=== PATIENT | male | born 1980 | race Caucasian/White ===

== ENCOUNTER 2021-03-31 18:25 | Emergency (ER) | payer OTHER, SELFPAY ==
[2021-03-31 19:33] VITALS: BP 129/71; PULSE 58; RESP 18; TEMP 36.7; O2SAT 100
--- NOTE | 2021-03-31 19:40 | DI.RAD.S_ITS ---
PROCEDURE: XR HAND RT MIN 3V INDICATIONS: laceration on saw blade TECHNIQUE: 3 views of the hand(s) acquired. COMPARISON: None. FINDINGS: Bones: No fractures or dislocations. Carpal bones are normally aligned. No suspicious bony lesions. Soft tissues: No radiopaque foreign bodies. IMPRESSION: 1. No fractures or radiopaque foreign bodies. Dictated by: Jose F Yuan M.D. on 03/31/2021 at 20:23 Approved by: Jose F Yuan M.D. on 03/31/2021 at 20:24
--- NOTE | 2021-03-31 22:44 | ED_ITS ---
HPI - Wound/Laceration General Chief Complaint: Wound/Laceration Stated Complaint: rt hand injury Time Seen by Provider: 03/31/21 22:43 Source: patient and family () Mode of arrival: Ambulatory Limitations: no limitations History of Present Illness HPI narrative: This is a 40-year-old male with complaint of right hand injury. Patient states he was using a saw earlier today when he caught the back of his hand. He states his pain is pretty well controlled. He has full range of motion. No numbness or tingling. Patient does not appreciate any weakness. Patient is unsure if his tetanus is up-to-date. He denies any other injuries elsewhere. He states he does not take any medications regularly. He states he has an allergy to either cephalexin or Septra. He does not know which. Related Data Previous Rx's Medication Instructions Recorded doxycycline hyclate 100 mg tablet 100 mg PO BID #10 tab 04/01/21 Allergies Allergy/AdvReac Type Severity Reaction Status Date / Time No Known Drug Allergies Allergy Verified 03/31/21 22:59 Review of Systems Review of Systems ROS Unobtainable: All systems reviewed & are unremarkable except as noted in HPI and below Patient History Social History Smoking Status: Never smoker Smoking Status: Never smoker alcohol intake frequency: a few times a month Substance Use Type: does not use Exam Narrative Exam Narrative: GENERAL: Alert and oriented x three, male in mild distress. HEENT: Head normocephalic, atraumatic, EOMI, pupils reactive, face symmetric, moist mucous membranes NECK: Supple, full range of motion EXTREMITIES: Normal range of motion, no clubbing or edema. Neurovascularly intact. Patient has a large laceration on the posterior of his right hand across the metacarpals 2 through 3. It is quite gap with a loss of some tissue. Patient has full adduction and abduction, full flexion extension of all 5 fingers. As well as full movement in the wrist. Known bony tenderness. Normal sensation. NEUROLOGICAL: Cranial nerves II through XII grossly intact. Moving all extremities SKIN: Warm, dry, no petechiae, no rashes or lesions. Initial Vital Signs Initial Vital Signs: Vital Signs Temperature 98.1 F 03/31/21 19:33 Pulse Rate 58 L 03/31/21 19:33 Respiratory Rate 18 03/31/21 19:33 Blood Pressure 129/71 03/31/21 19:33 Pulse Oximetry 100 03/31/21 19:33 Procedures Laceration Repair Laceration 1: Site: hand Side (If applicable): right Size (cm): 5 Description: irregular Depth: simple, single layer Local Anesthetic: lidocaine 1% Amount of anesthesia used (mL): 5 Pre-repair: wound explored, irrigated extensively and deep structures in tact Skin layer closed with: nylon Size (cm): 4-0 Number of sutures: 9 Technique: simple, interrupted Course Orders Ordered: Discontinued Medications Diphtheria/Tetanus/Acell Pertussis (Tet,Diph,Pertuss(Acell),Vac/Pf 0.5 Ml Syringe) 0.5 ml IM .ONCE ONE Stop: 03/31/21 22:55 Last Admin: 03/31/21 23:05 Dose: 0.5 ml Documented by: LOY Doxycycline Hyclate (Doxycycline Hyclate 100 Mg Tablet) 100 mg PO NOW ONE Stop: 03/31/21 22:56 Last Admin: 03/31/21 23:05 Dose: 100 mg Documented by: LOY Ibuprofen (Ibuprofen 400 Mg Tablet) 800 mg PO NOW ONE Stop: 04/01/21 00:06 Last Admin: 04/01/21 00:10 Dose: 800 mg Documented by: LOY Lidocaine/Sodium Bicarbonate (Lido 1%/Sod Bicarb 8.4% (10ml) 10 Ml Syringe) 10 ml INJ NOW ONE Stop: 03/31/21 22:55 Last Admin: 03/31/21 23:06 Dose: 10 ml Documented by: LOY Vital Signs Vital signs: Vital Signs - 8 hr 03/31/21 19:33 Temperature 98.1 F Pulse Rate 58 L Respiratory Rate 18 Blood Pressure 129/71 Pulse Oximetry 100 MDM - Wound/Laceration Imaging Data Extremity x-ray #1: Radiologist's Impression: [address] [id number] ReportSigned Patient: Paolo Kemp [facility]#: [id number]: 1980Acct:[id number]/Sex: 40 / MDate of Service: 03/31/21Loc: EDAccession Number: [id number] Procedure: XR hand RT min 3V Ordering Provider: Ally Dubois D.O. PROCEDURE: XR HAND RT MIN 3V INDICATIONS: laceration on saw blade TECHNIQUE: 3 views of the hand(s) acquired. COMPARISON: None. FINDINGS: Bones: No fractures or dislocations. Carpal bones are normally aligned. No suspicious bony lesions. Soft tissues: No radiopaque foreign bodies. IMPRESSION: 1. No fractures or radiopaque foreign bodies. Dictated by: Jose F Yuan M.D. on 03/31/2021 at 20:23 Approved by: Jose F Yuan M.D. on 03/31/2021 at 20:24 [facility] Narrative Medical decision making narrative: With chainsaw injury to the hand with laceration with no obvious bony involvement. Tendons are not visualized patient has full movement and strength. Patient was placed with a splint to remind him to keep his fingers straight. Patient was also given a prescription for oral antibiotics is likely a dirty infection although fairly clean after irrigation. Discharge Plan Departure Patient Disposition: Home Clinical Impression: Laceration of hand Instructions: DI for Laceration Repair Activity Restrictions/Additional Instructions: Follow-up next 7-10 days for suture removal. Use splint regularly to prevent flexion of your hand so that your sutures are not pulled out. You may take Tylenol up to a 1000 mg and or ibuprofen up to 800 mg every 8 hours as needed for pain Take antibiotics until completely gone. This medication can make you more likely to sunburn so be cautious if your in the sun make sure to wear protective clothing and sunscreen. Prescription sent to [facility] Wound Care: Keep wound(s) clean and dry. Wash daily with soap and water only. Do not use over the counter products (alcohol or peroxide)on the wounds unless instructed by a physician. If wound condition worsens (increased/expanding redness, developing fluid blisters, or worsening pain), either contact your doctor for an urgent re- assessment , or return to the Emergency Department. Return to the Emergency Department for any new or worsening symptoms. Return to the ED, urgent care, or visit a primary care doctor for removal or suture or hui. You have #9 sutures present. Return if fever greater than 100.4 Fahrenheit, increased swelling, increasing pain or worsening symptoms such as increased discharge or spreading redness. Prescriptions: New doxycycline hyclate 100 mg tablet 100 mg PO BID Qty: 10 RF: 0 Referrals: Frida Archibald MD [Physician] -
[2021-03-31] MEDS: DOXYCYCLINE HYCLATE 100 MG TABLET PO (23:05)
[2021-03-31] MEDS: TET,DIPH,PERTUSS(ACELL),VAC/PF 0.5 ML SYRINGE IM (23:05)
[2021-03-31] MEDS: LIDO 1%/SOD BICARB 8.4% (10ML) 10 ML SYRINGE INJ (23:06)
[2021-04-01] MEDS: IBUPROFEN 400 MG TABLET 800 MG PO (00:10)
[2021-04-01 00:19] VITALS: BP 128/77; PULSE 60; RESP 16; O2SAT 97
== END 2021-04-01 00:20 | disposition home or self-care (01) ==
PROVIDERS: Emergency Provider Emergency Medicine
DX: S61.411A Laceration without foreign body of right hand, initial encounter (principal); W27.0XXA Contact with workbench tool, initial encounter; Z23 Encounter for immunization
CPT/HCPCS: 12002; 73130; 90471; 99283; 99284; 90715

== ENCOUNTER 2022-10-31 08:19 | Emergency (ER) | payer OTHER, SELFPAY ==
[2022-10-31] VITALS (20 sets, daily range): BP systolic 118–153; BP diastolic 65–92; PULSE 57–78; RESP 14–24; TEMP 36.2; O2SAT 96–100; BMI 27.2
--- NOTE | 2022-10-31 08:38 | DI.CT.S_ITS ---
PROCEDURE: CT STROKE INDICATIONS: left hemianopsia, prior bleed cavernous sinus clot, TECHNIQUE: Noncontrast 4.5 mm thick angled axial sections acquired from the foramen magnum to the vertex, with coronal reformats. For radiation dose reduction, the following was used: automated exposure control, adjustment of mA and/or kV according to patient size. COMPARISON: [facility], CT, HEAD WITHOUT CONTRAST, 07/01/2015, 13:13. FINDINGS: Image quality: Excellent. CSF spaces: Basal cisterns are patent. No extra-axial fluid collections. Ventricles are normal in size and shape. Brain: No midline shift. No intracranial masses or hemorrhage. Friedman-white matter interface is normal. Bones of the lesion can be seen involving lobe. Skull and face: Posterior craniotomy changes are seen. Calvarium and visualized facial bones are intact, without suspicious lesions. Sinuses: Visualized sinuses and mastoids are clear. IMPRESSION: Negative for acute hemorrhage. Prior craniotomy change with encephalomalacia involving the right occipital lobe. Note: Case discussed by telephone with Dr. Chen at 7:56 a.m. [place] time on October 31, 2022. This study fulfills neurological imaging criteria for inclusion or exclusion of acute stroke therapies based on available published neurological imaging guidelines. Dictated by: Syed Davidson M.D. on 10/31/2022 at 7:55 Approved by: Syed Davidson M.D. on 10/31/2022 at 7:56
--- NOTE | 2022-10-31 08:38 | DI.CT.S_ITS ---
PROCEDURE: CT ANGIO HEAD AND NECK INDICATIONS: left hemianopsia, prior bleed cavernous sinus clot, TECHNIQUE: Noncontrast images were performed earlier in the day and not repeated. After the administration of intravenous contrast, 1 mm thick sections acquired from the aortic arch through the [place]. Post-contrast 4.5 mm thick sections then re-acquired from the foramen magnum to the vertex. 3-dimensional [id number]-rosgfrgrkr (MIP) and/or volume rendering reformats were acquired of the central intracranial vasculature and neck separately. For radiation dose reduction, the following was used: automated exposure control, adjustment of mA and/or kV according to patient size. COMPARISON: [facility], CT, HEAD WITHOUT CONTRAST, 07/01/2015, 13:13. [facility], CT, CT STROKE, 10/31/2022, 8:42. FINDINGS: Image quality: Excellent. BRAIN: CSF spaces: Ventricles are normal in size and shape. Basal cisterns are patent. No extra-axial fluid collections. Brain: No midline shift. No intracranial bleeds or masses. Friedman-white matter interface appears intact. Focal encephalomalacia is seen involving the right occipital lobe. No abnormal vascularity can be seen at this site. Skull and face: Posterior craniotomy changes seen. Calvarium and facial bones appear intact, without suspicious lesions. Orbits appear normal. Sinuses: Sinuses and mastoids are clear. HEAD CT ANGIOGRAPHY: Anterior circulation: Intracranial internal carotid arteries are normal in size and flow. The flow within the paired anterior cerebral arteries is normal and symmetric. The flow within the middle cerebral arteries is normal and symmetric. The anterior communicating artery is seen. No aneurysms are seen. Posterior circulation: Visualized portions of the vertebral arteries demonstrate normal caliber, and join to form a normal appearing basilar artery. Flow within the posterior cerebral arteries is normal and symmetric. No aneurysms are seen. NECK CT ANGIOGRAPHY: Carotid system: The great vessels demonstrate a conventional anatomy as they arise from the aortic arch. The origins of the common carotid arteries appear patent. The common carotid arteries demonstrate normal caliber and courses. The bifurcation regions are both widely patent. The internal carotid arteries demonstrate normal calibers and courses. Posterior circulation: The origins of the vertebral arteries both appear widely patent. The more superior extracranial portions of both vertebral arteries also demonstrate normal courses and calibers. The left vertebral artery is dominant to right Soft tissues: Visualized neck soft tissues demonstrate no suspicious abnormalities. Bones: No suspicious bony lesions. Visualized cervical spine appears normally aligned. IMPRESSION: No significant intracranial arterial abnormality is seen. Within the arteries of the neck, no hemodynamically significant stenosis can be seen. 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 Posterior craniotomy change is seen. Any quantitative measurements of stenosis were performed using NASCET criteria. Dictated by: Syed Davidson M.D. on 10/31/2022 at 8:27 Approved by: Syed Davidson M.D. on 10/31/2022 at 8:30
--- NOTE | 2022-10-31 08:42 | ED.NEUROSD ---
HPI - Neuro Symptoms/Deficit General Chief Complaint: Neuro Symptoms/Deficit Stated Complaint: head pains, vision distorted on lt side Time Seen by Provider: 10/31/22 08:34 Source: patient Mode of arrival: Ambulatory History of Present Illness HPI Narrative: Patient 42-year-old male who has history of intracranial hemorrhage 7 years and cavernous venous thrombosis, presenting today with headache and left vision deficits. Said he is had a headache for about a week worse whenever he bends over. Yesterday he noticed he had some visual changes it was his birthday he did not really want to come in. Feels like there is deficit where he can not see half of his vision. He is no numbness tingling or weakness. No nausea or vomiting. This feels similar to his previous hemorrhagic stroke. He has also suffered from ocular migraines so he was not too concerned. He does have ocular migraines but he said this feels different in the vision is slightly more blurry than. On Anticoagulants: No Related Data Allergies Allergy/AdvReac Type Severity Reaction Status Date / Time No Known Drug Allergies Allergy Verified 10/31/22 08:40 Review of Systems Review of Systems ROS Unobtainable: All systems reviewed & are unremarkable except as noted in HPI and below Hematologic/Lymphatic On Anticoagulants: No Patient History Social History Smoking Status: Never smoker Smoking Status: Never smoker alcohol intake frequency: a few times a month Substance Use Type: does not use Exam Initial Vital Signs Initial Vital Signs: Vital Signs Temperature 97.1 F L 10/31/22 08:25 Pulse Rate 69 10/31/22 08:25 Respiratory Rate 18 10/31/22 08:25 Blood Pressure 148/78 H 10/31/22 08:25 Pulse Oximetry 99 10/31/22 08:25 Oxygen Delivery Method 10/31/22 08:25 GENERAL: Alert pleasant 42-year-old male HEENT: Head atraumatic,EOMI, pupils reactive, face symmetric, moist mucous membranes CARDIOVASCULAR: Regular rate and rhythm without murmurs, rubs or gallops. RESPIRATORY: Breath sounds equal bilaterally, no wheezes rales or rhonchi. ABDOMEN: Soft, nontender. Normoactive bowel sounds all 4 quadrants. No guarding or rebound. EXTREMITIES: Normal range of motion, no clubbing or edema. Neurovascularly intact NEUROLOGICAL: Alert and oriented x4.Normal gait and speech. Cranial nerves II through XII grossly intact. Good [id number], good mdfl-ak-[id number], strength equal bilaterally, no dysarthria or aphasia, sensation in tact to soft touch bilaterally, no visual changes, no facial droop, left hemianopsia present SKIN: Warm, dry, no laceration, no petechiae, no rashes or lesions. Scores NIH Stroke Scale Level of Conciousness: Alert, keenly responsive Ask month/age: Answers both questions correctly. Open/close eyes, close hand: Performs both tasks correctly Best gaze horizontal: Normal Visual coon: Partial hemianopia Facial palsy: Normal symetrical movement Left arm drift: No drift for full 10 sec Right arm drift: No drift for full 10 sec Left leg drift: No drift for full 5 sec Right leg drift: No drift for full 5 sec Limb ataxia: Absent Sensory on face/arms/legs: Normal, no sensory loss Best language: No aphasia, normal Dysarthria: Normal Extinction or inattention: No abnormality Total NIH Stroke scale score: 1 Course Orders Ordered: Discontinued Medications Aspirin (Aspirin Ec 325 Mg Tablet) 325 mg PO NOW ONE Stop: 10/31/22 09:16 Last Admin: 10/31/22 09:53 Dose: 325 mg Documented By: MARIO Vital Signs Vital signs: Vital Signs - 8 hr 10/31/22 08:25 10/31/22 08:35 10/31/22 08:37 Temperature 97.1 F L Pulse Rate 69 73 Respiratory Rate 18 Blood Pressure 148/78 H 136/81 Pulse Oximetry 99 100 Oxygen Delivery Method Room Air 10/31/22 08:37 Temperature Pulse Rate 78 Respiratory Rate 14 Blood Pressure Pulse Oximetry 100 Oxygen Delivery Method Room Air MDM - Neuro Symptoms/Deficit Lab Data 10/31/22 08:20 10/31/22 08:20 Labs: Lab Results 10/31/22 10/31/22 10/31/22 Range/Units 08:20 08:20 08:20 WBC 3.9 L (4.5-11.0) X10^3/uL RBC 4.96 (4.5-5.9) X10^6/uL Hgb 14.8 (13.5-17.5) g/dL Hct 44.1 (41-53) % MCV 88.8 (80-100) fL MCH 29.8 (26-34) PG MCHC 33.5 (30-36) % RDW 13.1 (11.6-14.8) % Plt Count 226 (150-400) X10^3/uL Neut % (Auto) 38.1 L (50-75) % Lymph % (Auto) 44.7 H (25-40) % [place] % (Auto) 10.0 (3-14) % Eos % (Auto) 6.2 H (2-4) % Baso % (Auto) 1.0 (0-2) % Neut # (Auto) 1500 (5860-1293) /uL Lymph # (Auto) 1700 (6190-9773) /uL [place] # (Auto) 400 (0-900) /uL Eos # (Auto) 200 (0-450) /uL Baso # (Auto) 0 (0-100) /uL PT 11.7 (10.1-12.7) SECONDS INR 1.0 (0.9-1.3) APTT 31 (26-36) SECONDS D-Dimer (<500) ng/ml Sodium 139 (137-145) mmol/L Potassium 3.8 (3.4-5.1) mmol/L Chloride 101 (98-107) mmol/L Carbon Dioxide 30 (22-32) mmol/L BUN 10 (9-20) mg/dL Creatinine 0.70 (0.66-1.25) mg/dL Estimated GFR > 60 (>60) mL/min BUN/Creatinine Ratio 14.3 (6-22) Glucose 82 (70-100) mg/dL Calcium 9.0 (8.4-10.2) mg/dL Total Bilirubin 1.3 (0.2-1.3) mg/dL AST 42 (17-59) IU/L ALT 52 H (<50) IU/L Alkaline Phosphatase 58 (38-126) U/L Total Creatine Kinase 61 (55-170) U/L CK-MB (CK-2) TNP CK-MB (CK-2) Rel Index TNP Troponin I < 0.012 (0.01-0.034) ng/mL Total Protein 7.4 (6.3-8.2) g/dL Albumin 4.4 (3.5-5.0) g/dL Globulin 3.0 (1.7-4.1) g/dL Albumin/Globulin Ratio 1.5 (1.0-2.8) Urine Color Urine Appearance Urine pH (4.5-8.0) Ur Specific [place] (1.000-1.035) Urine Protein (Negative) Urine Glucose (UA) (Negative) g/dL Urine Ketones (NEGATIVE) Urine Occult Blood (Negative) Urine Nitrate (Negative) Urine Bilirubin (NEGATIVE) Urine Urobilinogen (0.2) E.U./dL Ur Leukocyte Esterase (NEGATIVE) Urine RBC (0-5/HPF) Urine WBC (0-5/HPF) Ur Squamous Epith Cells (0-5/HPF) Urine Bacteria (None) Ur Culture Indicated? U Opiates 300ng/mL cut (Negative) Ur Oxycodone Screen (Negative) Urine Methadone Screen (Negative) Ur Barbiturates Screen (Negative) U Tricyclic Antidepress (Negative) Ur Phencyclidine Scrn (Negative) Ur Amphetamines Screen (Negative) U Methamphetamines Scrn (Negative) Ur MDMA Scrn (Ecstasy) (Negative) U Benzodiazepines Scrn (Negative) Urine Cocaine Screen (Negative) U Marijuana (THC) Screen (Negative) Ethyl Alcohol < 10 ( - 10) mg/dL SARS-CoV-2 (PCR) (Negative) 10/31/22 10/31/22 10/31/22 Range/Units 08:20 08:20 08:20 WBC (4.5-11.0) X10^3/uL RBC (4.5-5.9) X10^6/uL Hgb (13.5-17.5) g/dL Hct (41-53) % MCV (80-100) fL MCH (26-34) PG MCHC (30-36) % RDW (11.6-14.8) % Plt Count (150-400) X10^3/uL Neut % (Auto) (50-75) % Lymph % (Auto) (25-40) % [place] % (Auto) (3-14) % Eos % (Auto) (2-4) % Baso % (Auto) (0-2) % Neut # (Auto) (3040-8381) /uL Lymph # (Auto) (3644-8095) /uL [place] # (Auto) (0-900) /uL Eos # (Auto) (0-450) /uL Baso # (Auto) (0-100) /uL PT (10.1-12.7) SECONDS INR (0.9-1.3) APTT (26-36) SECONDS D-Dimer 225 (<500) ng/ml Sodium (137-145) mmol/L Potassium (3.4-5.1) mmol/L Chloride (98-107) mmol/L Carbon Dioxide (22-32) mmol/L BUN (9-20) mg/dL Creatinine (0.66-1.25) mg/dL Estimated GFR (>60) mL/min BUN/Creatinine Ratio (6-22) Glucose (70-100) mg/dL Calcium (8.4-10.2) mg/dL Total Bilirubin (0.2-1.3) mg/dL AST (17-59) IU/L ALT (<50) IU/L Alkaline Phosphatase (38-126) U/L Total Creatine Kinase (55-170) U/L CK-MB (CK-2) CK-MB (CK-2) Rel Index Troponin I (0.01-0.034) ng/mL Total Protein (6.3-8.2) g/dL Albumin (3.5-5.0) g/dL Globulin (1.7-4.1) g/dL Albumin/Globulin Ratio (1.0-2.8) Urine Color Yellow Urine Appearance Clear Urine pH 6.5 (4.5-8.0) Ur Specific [place] 1.020 (1.000-1.035) Urine Protein Negative (Negative) Urine Glucose (UA) Negative (Negative) g/dL Urine Ketones Negative (NEGATIVE) Urine Occult Blood Negative (Negative) Urine Nitrate Negative (Negative) Urine Bilirubin Negative (NEGATIVE) Urine Urobilinogen 0.2 (0.2) E.U./dL Ur Leukocyte Esterase Negative (NEGATIVE) Urine RBC None seen (0-5/HPF) Urine WBC 0-1/hpf (0-5/HPF) Ur Squamous Epith Cells None seen (0-5/HPF) Urine Bacteria Occasional (0-1) (None) Ur Culture Indicated? Cult not indicated U Opiates 300ng/mL cut Negative (Negative) Ur Oxycodone Screen Negative (Negative) Urine Methadone Screen Negative (Negative) Ur Barbiturates Screen Negative (Negative) U Tricyclic Antidepress Negative (Negative) Ur Phencyclidine Scrn Negative (Negative) Ur Amphetamines Screen Negative (Negative) U Methamphetamines Scrn Negative (Negative) Ur MDMA Scrn (Ecstasy) Negative (Negative) U Benzodiazepines Scrn Negative (Negative) Urine Cocaine Screen Negative (Negative) U Marijuana (THC) Screen Negative (Negative) Ethyl Alcohol ( - 10) mg/dL SARS-CoV-2 (PCR) (Negative) 10/31/22 Range/Units 09:56 WBC (4.5-11.0) X10^3/uL RBC (4.5-5.9) X10^6/uL Hgb (13.5-17.5) g/dL Hct (41-53) % MCV (80-100) fL MCH (26-34) PG MCHC (30-36) % RDW (11.6-14.8) % Plt Count (150-400) X10^3/uL Neut % (Auto) (50-75) % Lymph % (Auto) (25-40) % [place] % (Auto) (3-14) % Eos % (Auto) (2-4) % Baso % (Auto) (0-2) % Neut # (Auto) (7363-5063) /uL Lymph # (Auto) (0940-9951) /uL [place] # (Auto) (0-900) /uL Eos # (Auto) (0-450) /uL Baso # (Auto) (0-100) /uL PT (10.1-12.7) SECONDS INR (0.9-1.3) APTT (26-36) SECONDS D-Dimer (<500) ng/ml Sodium (137-145) mmol/L Potassium (3.4-5.1) mmol/L Chloride (98-107) mmol/L Carbon Dioxide (22-32) mmol/L BUN (9-20) mg/dL Creatinine (0.66-1.25) mg/dL Estimated GFR (>60) mL/min BUN/Creatinine Ratio (6-22) Glucose (70-100) mg/dL Calcium (8.4-10.2) mg/dL Total Bilirubin (0.2-1.3) mg/dL AST (17-59) IU/L ALT (<50) IU/L Alkaline Phosphatase (38-126) U/L Total Creatine Kinase (55-170) U/L CK-MB (CK-2) CK-MB (CK-2) Rel Index Troponin I (0.01-0.034) ng/mL Total Protein (6.3-8.2) g/dL Albumin (3.5-5.0) g/dL Globulin (1.7-4.1) g/dL Albumin/Globulin Ratio (1.0-2.8) Urine Color Urine Appearance Urine pH (4.5-8.0) Ur Specific [place] (1.000-1.035) Urine Protein (Negative) Urine Glucose (UA) (Negative) g/dL Urine Ketones (NEGATIVE) Urine Occult Blood (Negative) Urine Nitrate (Negative) Urine Bilirubin (NEGATIVE) Urine Urobilinogen (0.2) E.U./dL Ur Leukocyte Esterase (NEGATIVE) Urine RBC (0-5/HPF) Urine WBC (0-5/HPF) Ur Squamous Epith Cells (0-5/HPF) Urine Bacteria (None) Ur Culture Indicated? U Opiates 300ng/mL cut (Negative) Ur Oxycodone Screen (Negative) Urine Methadone Screen (Negative) Ur Barbiturates Screen (Negative) U Tricyclic Antidepress (Negative) Ur Phencyclidine Scrn (Negative) Ur Amphetamines Screen (Negative) U Methamphetamines Scrn (Negative) Ur MDMA Scrn (Ecstasy) (Negative) U Benzodiazepines Scrn (Negative) Urine Cocaine Screen (Negative) U Marijuana (THC) Screen (Negative) Ethyl Alcohol ( - 10) mg/dL SARS-CoV-2 (PCR) Negative (Negative) Imaging Data CT scan - head: Radiologist's Impression: Dr. Davidson called me at 8:56 a.m. no intracranial hemorrhage CT Scan Report Signed Patient: Paolo Kemp MR#: [id number] : 1980 Acct:[id number] Age/Sex: 42 / M Date of Service: 10/31/22 Loc: ED Accession Number: [id number] ?? Procedure: CT Stroke Ordering Provider: Nicole Chen D.O. PROCEDURE:? CT STROKE ? INDICATIONS:? left hemianopsia, prior bleed cavernous sinus clot, ? TECHNIQUE:? Noncontrast 4.5 mm thick angled axial sections acquired from the foramen magnum to the vertex, with coronal reformats.? For radiation dose reduction, the following was used:? automated exposure control, adjustment of mA and/or kV according to patient size.? ? COMPARISON:? [facility], CT, HEAD WITHOUT CONTRAST, 07/01/2015, 13:13. ? FINDINGS:? Image quality:? Excellent.? ? CSF spaces:? Basal cisterns are patent.? No extra-axial fluid collections.? Ventricles are normal in size and shape.? ? Brain:? No midline shift.? No intracranial masses or hemorrhage.? Friedman-white matter interface is normal.? Bones of the lesion can be seen involving lobe. ? Skull and face:? Posterior craniotomy changes are seen.? Calvarium and visualized facial bones are intact, without suspicious lesions.? ? Sinuses:? Visualized sinuses and mastoids are clear.? ? ? IMPRESSION:? Negative for acute hemorrhage. ? Prior craniotomy change with encephalomalacia involving the right occipital lobe. ? Note: Case discussed by telephone with Dr. Chen at 7:56 a.m. [place] time on October 31, 2022.? ? This study fulfills neurological imaging criteria for inclusion or exclusion of acute stroke therapies based on available published neurological imaging guidelines.? ? ? Dictated by: Syed Davidson M.D. on 10/31/2022 at 7:55 ? ? Approved by: Syed Davidson M.D. on 10/31/2022 at 7:56 ? MR brain: Radiologist's Impression: Signed Patient: Paolo Kemp MR#: [id number] : 1980 Acct:[id number] Age/Sex: 42 / M Date of Service: 10/31/22 Loc: 90A-1 Accession Number: [id number] ?? Procedure: MR head/brain wo con Ordering Provider: Nicole Chen D.O. PROCEDURE:? MR HEAD/BRAIN WO CON ? INDICATIONS:? left visual defect ? TECHNIQUE:? Noncontrast axial T1 spin echo, axial T2 fast spin echo, sagittal and axial FLAIR, coronal T2 fast spin echo, axial gradient echo, axial diffusion and ADC through the brain.? ? COMPARISON:? [facility], CT, CT STROKE, 10/31/2022, 8:42.? [facility], CT, CT ANGIO HEAD AND NECK, 10/31/2022, 8:42. ? FINDINGS:? Image quality:? Excellent.? ? CSF Spaces:? Basal cisterns are patent.? No extra-axial fluid collections.? Ventricles are normal in size and shape.? ? Brain:? There is encephalomalacia in the right occipital lobe compatible with old infarct.? 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 No evidence for acute intracranial hemorrhage.? No intracranial masses.? Friedman/white matter interface is normal.? Brainstem appears normal.? Diffusion-weighted images demonstrate no acute ischemic insult.? No chronic ischemic insults.? Normal intravascular flow voids are present.? ? Skull and face:? Calvarium has normal marrow signal.? Orbits appear normal.? ? Sinuses:? Sinuses and mastoids are clear.? ? IMPRESSION:? ? 1. A small area of old hemorrhagic infarct in the right occipital lobe.? No acute ischemia or intracranial hemorrhage. ? The result was discussed with Dr. Chen.? ? ? Dictated by: Sidney Crabtree M.D. on 10/31/2022 at 11:28? ECG Data Interpretation: Normal sinus rhythm rate 67 ME interval 178 QRS [address] changes no T-wave inversions MDM Narrative Medical decision making narrative: Patient 42-year-old male with history of intracranial hemorrhage and cavernous sinus thrombosis with intervention presenting today with headache for 1 week and left-sided hemianopsia started yesterday. Currently out of the window for tPA. Initial head CT results were called to me by Dr. Davidson, reports no acute intracranial hemorrhage. Patient is given aspirin 325. 09:12 Dr. Bolivar stroke neurologist at [facility] consulted in regards to acute stroke. At this time recommends aspirin 325 daily MRI. Recommend checking for antiphospholipid antibody factor [address] Alvarado accepts patient for CVA After further discussion with patient he has had some hemianopsia that comes and goes since his intracranial hemorrhage he is had headache ongoing for 1 week slightly more blurry vision than normal. He actually had MRI that was done fairly quickly there is a spot in the right occipital area in the same place where his previous hemorrhage was. There is no acute infarct no acute hemorrhage. I actually suspect this is Warm and ocular migraine rather than a CVA. However he is already been admitted in the hospitalist is here to evaluate. Low suspicion for new an acute stroke. However some of the hypercoagulable labs have been sent and are still pending. Discharge Plan Departure Patient Disposition: Home Clinical Impression: Intracranial hemorrhage
[2022-10-31 08:48] LABS: Prothrombin Time 11.7 SECONDS (10.1-12.7)
[2022-10-31 08:49] LABS: Add Manual Diff / Slide Review NO; Basophils Absolute Auto 0 /uL (0-100); Eosinophils Absolute Auto 200 /uL (0-450); Eosinophils Percent Auto 6.2 % (2-4); Hematocrit 44.1 % (41-53); Hemoglobin 14.8 g/dL (13.5-17.5); Lymphocytes Absolute Auto 1700 /uL (1100-4500); Lymphocytes Percent Auto 44.7 % (25-40); Mean Corpuscular HGB Conc 33.5 % (30-36); Mean Corpuscular Hemoglobin 29.8 PG (26-34); Mean Corpuscular Volume 88.8 fL (80-100); Monocytes Absolute Auto 400 /uL (0-900); Neutrophils Absolute Auto 1500 /uL (1500-7000); Neutrophils Percent Auto 38.1 % (50-75); Platelet Count 226 X10^3/uL (150-400); Red Blood Cell Count 4.96 X10^6/uL (4.5-5.9); Red Cell Distribution Width 13.1 % (11.6-14.8); White Blood Cell Count 3.9 X10^3/uL (4.5-11.0)
[2022-10-31 08:51] LABS: Appearance Urine UA CLEAR; Bilirubin Urine UA NEGATIVE (NEGATIVE); Color Urine UA YELLOW; Glucose Urine UA NEGATIVE (Negative); Ketones Urine UA NEGATIVE (NEGATIVE); Leukocyte Esterase Urine UA NEGATIVE (NEGATIVE); Nitrite Urine UA NEGATIVE (Negative); Occult Blood Urine UA NEGATIVE (Negative); PTT Partial Thromboplastin Tim 31 SECONDS (26-36); Protein Urine UA NEGATIVE (Negative); Urobilinogen Urine UA 0.2 E.U./dL (0.2); pH Urine UA 6.5 (4.5-8.0)
[2022-10-31 08:52] LABS: UR Morphine/Opiate cutoff 300 Negative (Negative); Ur Creatinine Normal (Normal); Ur Specific Gravity Normal (Normal); Urine Amphetamines Negative (Negative); Urine Barbiturates Negative (Negative); Urine Benzodiazepines Negative (Negative); Urine Cocaine Negative (Negative); Urine MDMA Negative (Negative); Urine Methadone Negative (Negative); Urine Methamphetamines Negative (Negative); Urine Oxycodone Negative (Negative); Urine Phencyclidine Negative (Negative); Urine Tetrahydrocannabinol Negative (Negative); Urine Tricyclic Antidepressant Negative (Negative); Urine pH Normal (Normal)
[2022-10-31 09:03] LABS: Alanine Aminotransferase 52 IU/L (<50); Albumin 4.4 g/dL (3.5-5.0); Albumin Globulin Ratio 1.5 (1.0-2.8); Alkaline Phosphatase 58 U/L (38-126); Aspartate Aminotransferase 42 IU/L (17-59); BUN Creatinine Ratio 14.3 (6-22); Bilirubin Total 1.3 mg/dL (0.2-1.3); Blood Urea Nitrogen 10 mg/dL (9-20); Carbon Dioxide 30 mmol/L (22-32); Chloride 101 mmol/L (98-107); Creatine Kinase 61 U/L (55-170); Estimated Glomerular Filt Rate > 60 mL/min (>60); Ethanol (ETOH) < 10 mg/dL; Glucose 82 mg/dL (70-100); HEMOLYSIS < 15 (0-50); Potassium 3.8 mmol/L (3.4-5.1); Sodium 139 mmol/L (137-145); Total Protein 7.4 g/dL (6.3-8.2)
[2022-10-31 09:08] LABS: Bacteria Urine Occasional (0-1); Culture Indicated Urine Cult Not Indicated; RBC Urine None Seen (0-5/HPF); Squamous Epithelial Cell Urine None Seen (0-5/HPF); WBC Urine 0-1/HPF (0-5/HPF)
[2022-10-31 09:13] LABS: Troponin I < 0.012 ng/mL (0.01-0.034)
[2022-10-31 09:14] LABS: D Dimer 225 ng/ml (<500)
--- NOTE | 2022-10-31 09:15 | DI.MRI.S_ITS ---
PROCEDURE: MR HEAD/BRAIN WO CON INDICATIONS: left visual defect TECHNIQUE: Noncontrast axial T1 spin echo, axial T2 fast spin echo, sagittal and axial FLAIR, coronal T2 fast spin echo, axial gradient echo, axial diffusion and ADC through the brain. COMPARISON: [facility], CT, CT STROKE, 10/31/2022, 8:42. [facility], CT, CT ANGIO HEAD AND NECK, 10/31/2022, 8:42. FINDINGS: Image quality: Excellent. CSF Spaces: Basal cisterns are patent. No extra-axial fluid collections. Ventricles are normal in size and shape. Brain: There is encephalomalacia in the right occipital lobe compatible with old infarct. 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 No evidence for acute intracranial hemorrhage. No intracranial masses. Friedman/white matter interface is normal. Brainstem appears normal. Diffusion-weighted images demonstrate no acute ischemic insult. No chronic ischemic insults. Normal intravascular flow voids are present. Skull and face: Calvarium has normal marrow signal. Orbits appear normal. Sinuses: Sinuses and mastoids are clear. IMPRESSION: 1. A small area of old hemorrhagic infarct in the right occipital lobe. No acute ischemia or intracranial hemorrhage. The result was discussed with Dr. Chen. Dictated by: Sidney Crabtree M.D. on 10/31/2022 at 11:28 Approved by: Sidney Crabtree M.D. on 10/31/2022 at 11:39
[2022-10-31] MEDS: ASPIRIN EC 325 MG TABLET PO (09:53)
[2022-10-31 09:57] LABS: COVID19 -Nasal RAPID Negative (Negative)
--- NOTE | 2022-10-31 14:30 | PC.NURSE ---
Pt reports intermittent left half vision loss in both eyes. Reports 5/10 headache. Provider aware.
--- NOTE | 2022-10-31 16:35 | PM.HP.1 ---
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 Past week he has had occiptal headache comes and goes 5-7/10 severity. Since yesterday has been experiencing frequent flashes of light in left visual field which comes and goes. Pt has residual partial left visual field cut, describes as a thin line, since AVM surgery. He denies any new visual field deficit. No N/V.. He hasn't taken anything for these headaches. No fevers. ED w/u: Head CT no acute bleed. CTA no arterial abnormality. 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 Patient History Family & Social History Safety & Behavioral: Feels Safe in Current Yes Environment Been Physically Hurt or No Threatened By a Person Tobacco & Substance use: Smoking Status Never smoker alcohol intake frequency a few times a month Substance Use Type does not use Meds Home Medications and Allergies Allergies Allergy/AdvReac Type Severity Reaction Status Date / Time No Known Drug Allergies Allergy Verified 10/31/22 08:40 Review of Systems Review of Systems Narrative: complete 10 point ROS otherwise negative Exam Vital Signs (past 8 hours): - 10/31/22 08:37 10/31/22 08:37 10/31/22 09:00 Pulse Rate 78 70 Respiratory Rate 14 Blood Pressure 136/81 Pulse Oximetry 100 99 Oxygen Delivery Method Room Air 10/31/22 09:04 10/31/22 09:04 10/31/22 09:15 Pulse Rate 65 Respiratory Rate Blood Pressure 128/77 129/78 Pulse Oximetry 100 Oxygen Delivery Method 10/31/22 09:15 10/31/22 09:30 10/31/22 09:30 Pulse Rate 64 65 Respiratory Rate Blood Pressure 135/82 Pulse Oximetry 99 99 Oxygen Delivery Method 10/31/22 14:18 10/31/22 14:19 10/31/22 14:19 Pulse Rate 62 57 L Respiratory Rate Blood Pressure 127/76 Pulse Oximetry 99 99 Oxygen Delivery Method 10/31/22 14:30 10/31/22 14:30 10/31/22 14:45 Pulse Rate 58 L 60 Respiratory Rate 16 Blood Pressure 128/77 Pulse Oximetry 99 99 Oxygen Delivery Method 10/31/22 14:45 10/31/22 15:00 10/31/22 15:00 Pulse Rate 61 Respiratory Rate 17 Blood Pressure 118/76 121/80 Pulse Oximetry 99 Oxygen Delivery Method Oxygen Delivery Method Room Air Narrative Exam Narrative: Gen: alert, cooperative, NAD HEENT: PEERLA, EOMI, no gaze deficit in central or peripheral coon (other than baseline line cut) Neck: no enlarged LNs Lungs: clear CV: s1, S2, RRR, no murmur Abd: no HSM Ext: no edema Neuro: nl affect and speech, no facial or ext weakness Objective Labs 10/31/22 08:20 10/31/22 08:20 Labs: Laboratory Results - last 24 hr 10/31/22 10/31/22 10/31/22 08:20 08:20 08:20 WBC 3.9 L RBC 4.96 Hgb 14.8 Hct 44.1 MCV 88.8 MCH 29.8 MCHC 33.5 RDW 13.1 Plt Count 226 Neut % (Auto) 38.1 L Lymph % (Auto) 44.7 H [place] % (Auto) 10.0 Eos % (Auto) 6.2 H Baso % (Auto) 1.0 Neut # (Auto) 1500 Lymph # (Auto) 1700 [place] # (Auto) 400 Eos # (Auto) 200 Baso # (Auto) 0 PT 11.7 INR 1.0 APTT 31 D-Dimer Sodium 139 Potassium 3.8 Chloride 101 Carbon Dioxide 30 BUN 10 Creatinine 0.70 Estimated GFR > 60 BUN/Creatinine Ratio 14.3 Glucose 82 Calcium 9.0 Total Bilirubin 1.3 AST 42 ALT 52 H Alkaline Phosphatase 58 Total Creatine Kinase 61 CK-MB (CK-2) TNP CK-MB (CK-2) Rel Index TNP Troponin I < 0.012 Total Protein 7.4 Albumin 4.4 Globulin 3.0 Albumin/Globulin Ratio 1.5 Urine Color Urine Appearance Urine pH Ur Specific [place] Urine Protein Urine Glucose (UA) Urine Ketones Urine Occult Blood Urine Nitrate Urine Bilirubin Urine Urobilinogen Ur Leukocyte Esterase Urine RBC Urine WBC Ur Squamous Epith Cells Urine Bacteria Ur Culture Indicated? U Opiates 300ng/mL cut Ur Oxycodone Screen Urine Methadone Screen Ur Barbiturates Screen U Tricyclic Antidepress Ur Phencyclidine Scrn Ur Amphetamines Screen U Methamphetamines Scrn Ur MDMA Scrn (Ecstasy) U Benzodiazepines Scrn Urine Cocaine Screen U Marijuana (THC) Screen Ethyl Alcohol < 10 SARS-CoV-2 (PCR) 10/31/22 10/31/22 10/31/22 08:20 08:20 08:20 WBC RBC Hgb Hct MCV MCH MCHC RDW Plt Count Neut % (Auto) Lymph % (Auto) [place] % (Auto) Eos % (Auto) Baso % (Auto) Neut # (Auto) Lymph # (Auto) [place] # (Auto) Eos # (Auto) Baso # (Auto) PT INR APTT D-Dimer 225 Sodium Potassium Chloride Carbon Dioxide BUN Creatinine Estimated GFR BUN/Creatinine Ratio Glucose Calcium Total Bilirubin AST ALT Alkaline Phosphatase Total Creatine Kinase CK-MB (CK-2) CK-MB (CK-2) Rel Index Troponin I Total Protein Albumin Globulin Albumin/Globulin Ratio Urine Color Yellow Urine Appearance Clear Urine pH 6.5 Ur Specific [place] 1.020 Urine Protein Negative Urine Glucose (UA) Negative Urine Ketones Negative Urine Occult Blood Negative Urine Nitrate Negative Urine Bilirubin Negative Urine Urobilinogen 0.2 Ur Leukocyte Esterase Negative Urine RBC None seen Urine WBC 0-1/hpf Ur Squamous Epith Cells None seen Urine Bacteria Occasional (0-1) Ur Culture Indicated? Cult not indicated U Opiates 300ng/mL cut Negative Ur Oxycodone Screen Negative Urine Methadone Screen Negative Ur Barbiturates Screen Negative U Tricyclic Antidepress Negative Ur Phencyclidine Scrn Negative Ur Amphetamines Screen Negative U Methamphetamines Scrn Negative Ur MDMA Scrn (Ecstasy) Negative U Benzodiazepines Scrn Negative Urine Cocaine Screen Negative U Marijuana (THC) Screen Negative Ethyl Alcohol SARS-CoV-2 (PCR) 10/31/22 09:56 WBC RBC Hgb Hct MCV MCH MCHC RDW Plt Count Neut % (Auto) Lymph % (Auto) [place] % (Auto) Eos % (Auto) Baso % (Auto) Neut # (Auto) Lymph # (Auto) [place] # (Auto) Eos # (Auto) Baso # (Auto) PT INR APTT D-Dimer Sodium Potassium Chloride Carbon Dioxide BUN Creatinine Estimated GFR BUN/Creatinine Ratio Glucose Calcium Total Bilirubin AST ALT Alkaline Phosphatase Total Creatine Kinase CK-MB (CK-2) CK-MB (CK-2) Rel Index Troponin I Total Protein Albumin Globulin Albumin/Globulin Ratio Urine Color Urine Appearance Urine pH Ur Specific [place] Urine Protein Urine Glucose (UA) Urine Ketones Urine Occult Blood Urine Nitrate Urine Bilirubin Urine Urobilinogen Ur Leukocyte Esterase Urine RBC Urine WBC Ur Squamous Epith Cells Urine Bacteria Ur Culture Indicated? U Opiates 300ng/mL cut Ur Oxycodone Screen Urine Methadone Screen Ur Barbiturates Screen U Tricyclic Antidepress Ur Phencyclidine Scrn Ur Amphetamines Screen U Methamphetamines Scrn Ur MDMA Scrn (Ecstasy) U Benzodiazepines Scrn Urine Cocaine Screen U Marijuana (THC) Screen Ethyl Alcohol SARS-CoV-2 (PCR) Negative Assessment & Plan Assessment & Plan narrative: 1. Ocular migraine -pt with no acute findings on CTA or MRI, no new visual field deficit, no other neuro deficits on exam, symptoms are c/w ocular migraine which pt has a history of -very low suspicion this is new bleed/stroke -okay to discharge from ED -f/u with PCP, consider see neurologist as outpatient for ocular migraines -pt seen as ED consult and not admitted Time Spent With Patient Critical Care time: I spent a total of [] minutes of critical care time on this patient's care today; this time is exclusive of procedural time.
[2022-11-03 09:26] LABS: APTT 25.7 sec (.); Factor V Activity 92 % (.)
[2022-11-09 14:43] LABS: Cardiolipin IgA Negative (.)
== END 2022-10-31 17:53 | disposition home or self-care (01) ==
LOC: ED 08:34 → AC 16:00
PROVIDERS: Emergency Provider Emergency Medicine; Referring Provider Emergency Medicine; Visit Provider Neuromusculoskeletal Medicine, Sports Medicine
DX: G43.909 Migraine, unspecified, not intractable, without status migrainosus (principal)
CPT/HCPCS: 36415; 70450; 70496; 70498; 70551; 80053; 80305; 80320; 81001; 81241; 82550; 83520; 84484; 85025; 85220; 85379; 85610; 85611; 85730; 86147; 86148; 87635; 93005; 99285; C9803; Q9967

== ENCOUNTER 2024-05-27 12:44 | Emergency (ER) | payer OTHER, SELFPAY ==
[2024-05-27 12:49] VITALS: BP 131/74; PULSE 58; RESP 14; TEMP 36.4; O2SAT 99; BMI 26.4
[2024-05-27 13:00] VITALS: PULSE 61; O2SAT 97
--- NOTE | 2024-05-27 13:11 | ED.HA ---
HPI - Headache General Chief Complaint: Headache Stated Complaint: vision issues, headache Time Seen by Provider: 05/27/24 12:46 Mode of arrival: Ambulatory History of Present Illness HPI Narrative: 43-year-old male with history of subarachnoid hemorrhage and venous malformation (surgery 8 years ago, stable per pt) presents by private vehicle from home for approximately 1 week of right-sided headache and visual disturbances. Patient states that he frequently gets ocular migraines, but usually does not have head pain associated with these migraines. Patient has had both the headache and aura visual changes that are not improving with tylenol. Pain is from R neck and wraps over his head to his R eye. Related Data Allergies Allergy/AdvReac Type Severity Reaction Status Date / Time No Known Drug Allergies Allergy Verified 05/27/24 12:57 Patient History Social History Smoking Status: Never smoker Smoking Status: Never smoker alcohol intake frequency: a few times a month Substance Use Type: does not use Exam Initial Vital Signs Initial Vital Signs: Vital Signs Temperature 97.5 F L 05/27/24 12:49 Pulse Rate 58 L 05/27/24 12:49 Respiratory Rate 14 05/27/24 12:49 Blood Pressure 131/74 05/27/24 12:49 Pulse Oximetry 99 05/27/24 12:49 Oxygen Delivery Method Room Air 05/27/24 12:49 Const: Awake, alert, no acute distress, nontoxic appearing Eyes: PERRL, EOMI Cardiac: bradycardia, regular rhythm RESP: unlabored, clear bilaterally, no wheezing Skin: Warm, Dry, intact, no rashes Neuro: AO x3, CN II-XII grossly intact, moves all extremities Course Orders Ordered: ED Orders 05/27/24 13:10 CT head/brain wo con Stat Discontinued Medications Diphenhydramine HCl (Diphenhydramine 50 Mg/Ml Vial) 50 mg IV NOW ONE Stop: 05/27/24 13:11 Last Admin: 05/27/24 13:25 Dose: 50 mg Acetaminophen (Ofirmev) 1,000 mg in 100 mls @ 400 mls/hr IV NOW ONE Stop: 05/27/24 13:24 Last Infusion: 05/27/24 13:41 Dose: Infused Sodium Chloride (Normal Saline 0.9%) 1,000 mls @ 1,000 mls/hr IV BOLUS ONE Stop: 05/27/24 14:10 Last Admin: 05/27/24 13:24 Dose: 1,000 mls/hr Ketorolac Tromethamine (Ketorolac 30 Mg/Ml Vial) 15 mg IV NOW ONE Stop: 05/27/24 13:53 Last Admin: 05/27/24 13:59 Dose: 15 mg Metoclopramide HCl (Metoclopramide 10 Mg/2 Ml Inj) 10 mg IV NOW ONE Stop: 05/27/24 13:11 Last Admin: 05/27/24 13:25 Dose: 10 mg Vital Signs Vital signs: Vital Signs - 8 hr 05/27/24 12:49 Temperature 97.5 F L Pulse Rate 58 L Respiratory Rate 14 Blood Pressure 131/74 Pulse Oximetry 99 Oxygen Delivery Method Room Air MDM - Headache Differential Diagnosis Differential diagnosis: Likely migraine, tension headache and subarachnoid hemorrhage Imaging Data CT scan - head: Radiologist's Impression: PROCEDURE: CT HEAD/BRAIN WO CON INDICATIONS: PATTEN, NEW PATTERN, REMOTE HX SAH TECHNIQUE: Noncontrast 4.5 mm thick angled axial sections acquired from the foramen magnum to the vertex, with coronal and sagittal reformats. For radiation dose reduction, the following was used: automated exposure control, adjustment of mA and/or kV according to patient size. COMPARISON: [facility], CT, CT STROKE, 10/31/2022, 8:42. [facility], MR, MR HEAD/BRAIN WO CON, 10/31/2022, 10:38. FINDINGS: Image quality: Diagnostic. CSF spaces: Basal cisterns are patent. No extra-axial fluid collections. Ventricles are normal in size and shape. Brain: No midline shift. No intracranial masses or hemorrhage. Friedman-white matter interface is normal. Stable encephalomalacia of remote infarct involving the posterior aspect of the right occipital lobe. Skull and face: Calvarium and visualized facial bones are intact, without suspicious lesions. Sinuses: Visualized sinuses and mastoids are clear. IMPRESSION: CT head without acute intracranial abnormalities. No acute intracranial hemorrhage. Stable encephalomalacia from remote right posterior occipital infarct. Dictated by: Eamon Pack M.D. on 05/27/2024 at 12:28 Approved by: Eamon Pack M.D. on 05/27/2024 at 12:49 [facility] Narrative Medical decision making narrative: Headache and aura in his vision. Based on patient's previous history of subarachnoid hemorrhage and new headache pattern a CT will be ordered. Suspect at least partial component of tension etiology due to associated neck pain. Headache significantly improved with migraine cocktail. Resting comfortably in bed. CT shows no evidence of acute findings. Patient informed of CT results, recommended supportive measures at home for tension headache. Recommended that if patient has continued or worsening migraines he should talk to his doctor about potentially being referred to neurology for additional management. Discharge Plan Departure Patient Disposition: Home Clinical Impression: Headache Instructions: DI for Headache Activity Restrictions/Additional Instructions: Your CT today showed no changes from previous. If you start having more persistent headaches I recommend talking to your primary care doctor, or even see a neurologist for better headache management. At home you may take Tylenol and ibuprofen as needed for pain, gently stretch your neck out to help relieve any tension, and you may apply over the counter remedies such as icy hot to help relieve muscle pains. Referrals: Daniel Pratt MD [Primary Care Provider] - Stand Alone Forms: Patient Portal/API
[2024-05-27 13:20] VITALS: BP 133/76; PULSE 56; O2SAT 99
[2024-05-27] MEDS: SODIUM CHLORIDE 0.9% 1,000 ML 1000 ML IV (13:24)
[2024-05-27] MEDS: ACETAMINOPHEN IV 1,000 MG/100 ML VIAL 400 MG IV (13:25)
[2024-05-27] MEDS: diphenhydrAMINE 50 MG/ML VIAL IV (13:25)
[2024-05-27] MEDS: METOCLOPRAMIDE 10 MG/2 ML INJ IV (13:25)
[2024-05-27 13:30] VITALS: BP 132/81; PULSE 47; O2SAT 99
[2024-05-27] MEDS: KETOROLAC 30 MG/ML VIAL 15 MG IV (13:59)
[2024-05-27 14:00] VITALS: BP 116/71; PULSE 48; O2SAT 98
== END 2024-05-27 14:24 | disposition home or self-care (01) ==
PROVIDERS: Emergency Provider Emergency Medicine; PCP Family Medicine
DX: R51.9 Headache, unspecified (principal); H53.9 Unspecified visual disturbance; Z86.79 Personal history of other diseases of the circulatory system
CPT/HCPCS: 70450; 96361; 96365; 96375; 99283; 99284; J0136; J1200; J1885; J2765